=== PATIENT | female | born 1985 | race Caucasian/White ===

== ENCOUNTER 2022-07-25 13:21 | Emergency (ER) | payer MEDICAID, SELFPAY ==
[2022-07-25 13:28] VITALS: BP 130/91; PULSE 89; RESP 18; TEMP 37.3; O2SAT 100
--- NOTE | 2022-07-25 13:56 | PC.NURSE ---
Pt states she took her Valtrex for her rash for the last three weeks with no results.
--- NOTE | 2022-07-25 14:31 | ED.GENADULT ---
HPI - General Adult General Chief complaint: Skin/Abscess/Foreign Body Stated complaint: Rash Source: patient Mode of arrival: ambulatory Limitations: no limitations History of Present Illness HPI narrative: Patient presents for evaluation of skin lesions to genital region for the last 2 weeks. She indicates she has a history of herpes so started taking Valtrex for symptoms. Medication did not improve her symptoms. She tried applying lotrimin without any improvement. She states she has not been able to shave her genital region as a result of her symptoms. She reports a burning sensation associated with the skin lesions. No fever, chills, nausea or vomiting. She is not diabetic. Related Data Home Medications Medication Instructions Recorded Confirmed alprazolam 1 mg tablet (Xanax) 1 mg PO TID PRN Anxiety 07/25/22 07/25/22 Allergies Allergy/AdvReac Type Severity Reaction Status Date / Time amoxicillin [From Augmentin] Allergy Mild Hives Verified 07/25/22 13:58 clavulanic acid Allergy Mild Hives Verified 07/25/22 13:58 [From Augmentin] Sulfa (Sulfonamide Allergy Mild Hives Verified 07/25/22 13:58 Antibiotics) Review of Systems Review of Systems: CONSTITUTIONAL: Denies fever, chills, or sweats. EYES: Denies visual changes, redness, or discharge. ENT: Denies rhinorrhea, congestion, sore throat, or otalgia. CARDIOVASCULAR: Denies chest pain, palpitations, or edema. RESPIRATORY: Denies cough or dyspnea. GASTROINTESTINAL: Denies abdominal pain, nausea, vomiting, or diarrhea. GENITOURINARY: Denies dysuria or hematuria. SKIN: Reports skin lesions to genital region with associated burning MUSCULOSKELETAL: Denies back pain, joint pain, or myalgia. NEUROLOGIC: Denies headache, numbness, dizziness, or weakness. PSYCHIATRIC: Denies anxiety or depression. [facility] Past Medical History Medical History Anxiety Herpes simplex Surgical History Surgical History History of breast augmentation Family History Family History Mother Family history non-contributory Social History Social History Substance use: never Gender identity (if verbalized by the patient): Female Sexual Orientation (if Verbalized by the Patient): Straight or Heterosexual Spiritual care concerns: No Exam Narrative: GENERAL: Well-appearing, well-nourished, and in no acute distress. HEAD: Normocephalic, atraumatic. EYES: PERRLA and EOMI. ENT: Nares clear, no rhinorrhea or epistaxis. Mucous membranes moist. Oropharynx without tonsillar hypertrophy exudate or other lesions. Bilateral TMs pearly li nonbulging NECK: Supple. No adenopathy or masses. No carotid bruits or JVD CHEST: Clear to auscultation. No respiratory distress. No wheezes rales or rhonchi HEART: Regular rate and rhythm. No murmur heard. Normal peripheral pulses. ABDOMEN: Soft, nontender, nondistended, normal active bowel sounds. EXTREMITIES: Normal range of motion. No edema. SKIN: there are areas of erythema surrounding hair follicles to genital region. NEURO: No focal deficits. Alert and oriented x3. PSYCH: Normal mood and affect. Course Course Emergency Course: This is a 36-year-old female who presented for evaluation of skin lesions to the genital region. It appears she has a folliculitis. She has allergies to sulfa and amoxicillin so will treat with doxycycline. Will also discharge her with Hibiclens. Follow up with primary provider and go to ER for worsening symptoms. Pt in agreement with plan of care. Level of Care: Express Care Visit Vital Signs Vital signs: Vital Signs Temperature 37.3 C 07/25/22 13:28 Pulse Rate 89 07/25/22 13:28 Respiratory Rate 18 07/25/22 13:28 Blood Pressure 130/91 H 06/28
== END 2022-07-25 14:29 | disposition home or self-care (01) ==
PROVIDERS: Emergency Provider Nurse Practitioner
DX: L73.9 Follicular disorder, unspecified (principal); F41.9 Anxiety disorder, unspecified
CPT/HCPCS: 99213; G0463